=== PATIENT | female | born 1985 | race Hispanic/Latino ===

== ENCOUNTER 2022-04-12 09:23 | Inpatient (IN) | payer BC ==
[2022-04-12 09:55] VITALS: BMI 44.2
[2022-04-12] MEDS ORDERED: Diphenoxylate HCl/Atropine Tablet PO PRN ×2 (10:10)
[2022-04-12] MEDS ORDERED: hydrALAZINE 20 MG/ML VIAL SLOW IVP PRN ×2 (10:10→22:50)
[2022-04-12] MEDS ORDERED: Butorphanol Tartrate 1 MG/ML VIAL SLOW IVP PRN (10:10)
[2022-04-12] MEDS ORDERED: Promethazine HCl 25 MG/ML VIAL IM PRN ×2 (10:10→22:50)
[2022-04-12] MEDS ORDERED: Methylergonovine 0.2 MG/ML VIAL IM PRN ×2 (10:10→22:50)
[2022-04-12] MEDS ORDERED: Lactated Ringer's 1,000 ML IV PRN (10:10)
[2022-04-12] MEDS ORDERED: Misoprostol 200 MCG TAB PR PRN (10:10)
[2022-04-12] MEDS ORDERED: Lidocaine 1% (PF) 30 ML VIAL SC PRN (10:10)
[2022-04-12] MEDS ORDERED: HYDROcodone/Acetaminophen 5/325 mg Tablet PO PRN ×4 (10:10→22:50)
[2022-04-12] MEDS ORDERED: Ondansetron PF 4 MG/2 ML Vial IVP PRN ×2 (10:10→22:50)
[2022-04-12] MEDS ORDERED: Carboprost 250 MCG/ML AMP IM PRN (10:10)
[2022-04-12] MEDS ORDERED: Ibuprofen 800 MG TAB PO PRN (10:10)
[2022-04-12] MEDS ORDERED: Penicillin G Potassium 5 MILL.UNITS VIAL ONE (10:12)
[2022-04-12] MEDS ORDERED: NS w/ Oxytocin 30 units 500 ML IV SCH ×2 (10:15→22:50)
[2022-04-12] MEDS ORDERED: Penicillin G Potassium 5 MILL.UNITS in Sodium Chloride 0.9% 100 ML IVPB SCH (10:15)
[2022-04-12 11:40] LABS: Hemoglobin 12.4 g/dL (12.0-15.5); Mean Corpuscular Hemoglobin 25.9 pg (27.0-33.0); Mean Platelet Volume 9.7 fl (7.4-10.4); Platelet Count 272 10x3/uL (150-450); RBC Distribution Width 14.1 % (11.5-14.5); Red Blood Cell (RBC) Count 4.78 10x6/uL (3.90-5.03); White Blood Cell (WBC) Count 14.1 10x3/uL (3.5-10.5)
[2022-04-12 12:11] LABS: Hep B Surf Ag Non-Reactive S/CO (NonReactive); Syphilis Antibody Nonreactive (Nonreactive); Syphilis Antibody Index 0.06 S/CO (<1.00 Non-Reactive)
[2022-04-12 12:46] LABS: HBSAg Index 0.15 S/CO (0-0.99)
[2022-04-12] MEDS: Penicillin G 2.5 MILL.units 2.5 MILL.UNITS in Premix Bag 1 BAG IVPB SCH ×2 (14:59→18:40)
[2022-04-12] MEDS ORDERED: Bisacodyl 10 MG SUPP PR PRN (22:50)
[2022-04-12] MEDS ORDERED: diphenhydrAMINE 25 MG CAP PO PRN (22:50)
[2022-04-12] MEDS ORDERED: Milk Of Magnesia 30 ML UDCUP PO PRN (22:50)
[2022-04-12] MEDS ORDERED: Misoprostol 200 MCG TAB VAG PRN (22:50)
[2022-04-12] MEDS ORDERED: Benzocaine-Menthol 82.5 ML CAN TOP PRN (22:50)
[2022-04-12] MEDS ORDERED: Lanolin Ointment 7 GM TUBE TOP PRN (22:50)
[2022-04-12] MEDS ORDERED: Boostrix 0.5 ML (Tdap) VIAL IM ONE (22:50)
[2022-04-12] MEDS ORDERED: NIFEdipine XL 30 MG TAB PO SCH (23:00)
[2022-04-12] MEDS: Ibuprofen 800 MG TAB PO SCH (23:42)
[2022-04-13] MEDS: Docusate 100 MG CAP PO SCH ×3 (00:27→21:25)
[2022-04-13] MEDS: Penicillin G 2.5 MILL.units 2.5 MILL.UNITS in Premix Bag 1 BAG IVPB SCH (01:39)
[2022-04-13] MEDS: Ibuprofen 800 MG TAB PO SCH ×3 (05:33→21:25)
[2022-04-13] MEDS: Ferrous Sulfate 325 MG TAB PO SCH ×2 (08:28→15:03)
[2022-04-13] MEDS: Prenatal Vitamin 1 TAB PO SCH (09:00)
[2022-04-13] MEDS ORDERED: NIFEdipine XL 30 MG TAB PO SCH (21:00)
[2022-04-14 04:30] VITALS: TEMP 98.1
[2022-04-14] MEDS: Ibuprofen 800 MG TAB PO SCH ×2 (05:59→15:10)
[2022-04-14 08:22] VITALS: BP 117/64
[2022-04-14] MEDS: Prenatal Vitamin 1 TAB PO SCH (09:19)
[2022-04-14] MEDS: Docusate 100 MG CAP PO SCH (09:19)
[2022-04-14] MEDS: Ferrous Sulfate 325 MG TAB PO SCH ×2 (09:21→16:16)
== END 2022-04-14 17:25 | disposition home or self-care (01) | DRG 807 ==
LOC: CSHLD/OP 09:23 → CSHLD 10:24 → CSHPP 23:08
PROVIDERS: ADMIT Student in an Organized Health Care Education/Training Program; ATTEND Student in an Organized Health Care Education/Training Program
PROC: 10E0XZZ Delivery of Products of Conception, External Approach (ICD-10-PCS; principal; 2022-04-12)
PROC: 10907ZC Drainage of Amniotic Fluid, Therapeutic from Products of Conception, Via Natural or Artificial Opening (ICD-10-PCS; 2022-04-12)
PROC: 0HQ9XZZ Repair Perineum Skin, External Approach (ICD-10-PCS; 2022-04-12)
DX: O99.824 Streptococcus B carrier state complicating childbirth (principal); Z37.0 Single live birth; Z20.822 Contact with and (suspected) exposure to COVID-19; Z3A.39 39 weeks gestation of pregnancy; Z79.899 Other long term (current) drug therapy; O70.0 First degree perineal laceration during delivery; O69.81X0 Labor and delivery complicated by cord around neck, without compression, not applicable or unspecified; O77.0 Labor and delivery complicated by meconium in amniotic fluid; R03.0 Elevated blood-pressure reading, without diagnosis of hypertension; O99.893 Other specified diseases and conditions complicating puerperium
CPT/HCPCS: 36415; 85027; 86780; 86850; 86900; 86901; 87340; 99285; J2540; J3490; J7120; U0003; U0005